=== PATIENT | female | born 1990 | race African-American/Black ===

== ENCOUNTER 2021-04-11 15:25 | Inpatient (IN) | payer OTHER ==
[2021-04-11] MEDS ORDERED: hydrALAZINE 20 MG/ML VIAL SLOW IVP PRN ×2 (16:07→22:47)
[2021-04-11] MEDS ORDERED: Docusate 100 MG CAP PO PRN (16:56)
[2021-04-11] MEDS ORDERED: Promethazine HCl 25 MG/ML VIAL IM PRN ×2 (16:56→18:59)
[2021-04-11] MEDS ORDERED: Ondansetron PF 4 MG/2 ML Vial IVP PRN ×3 (16:56→22:47)
[2021-04-11] MEDS ORDERED: Famotidine/PF 20 mg/2ml Vial SLOW IVP PRN (16:56)
[2021-04-11] MEDS ORDERED: Acetaminophen 500 MG TAB PO PRN (16:56)
[2021-04-11] MEDS ORDERED: Bicitra 30 ML UDCUP PO PRN (16:56)
[2021-04-11] MEDS ORDERED: ceFAZolin 2 GM/Dextrose 50 ML 2 GM in Premix Bag 1 BAG IVPB SCH (17:00)
[2021-04-11] MEDS ORDERED: Lactated Ringer's 1,000 ML IV SCH (17:00)
[2021-04-11] MEDS ORDERED: Carboprost 250 MCG/ML AMP IM PRN (17:03)
[2021-04-11] MEDS ORDERED: Methylergonovine 0.2 MG/ML VIAL IM PRN (17:03)
[2021-04-11 17:14] LABS: Mean Corpuscular HGB CONC 32.5 g/dL (32.0-36.0); Mean Corpuscular Hemoglobin 28.1 pg (27.0-33.0); Mean Corpuscular Volume 86.5 fl (81.6-98.3); Mean Platelet Volume 12.1 fl (7.4-10.4); Platelet Count 191 10x3/uL (150-450); RBC Distribution Width 13.5 % (11.5-14.5); Red Blood Cell (RBC) Count 3.56 10x6/uL (3.90-5.03); White Blood Cell (WBC) Count 14.4 10x3/uL (3.5-10.5)
[2021-04-11] MEDS ORDERED: NS w/ Oxytocin 30 units 500 ML IV SCH (17:15)
[2021-04-11] MEDS ORDERED: ceFAZolin 2 GM/Dextrose 50 ML IVPB ONE (17:17)
[2021-04-11 17:27] VITALS: BMI 27.4
[2021-04-11] MEDS ORDERED: Morphine PF 10 MG/10 ML VIAL ONE (17:33)
[2021-04-11] MEDS ORDERED: Dexamethasone 4 mg/ml Vial ONE (17:33)
[2021-04-11] MEDS ORDERED: Ondansetron PF 4 MG/2 ML Vial ONE (17:33)
[2021-04-11] MEDS ORDERED: Bupivacaine 0.75% W/DEXTROSE 8.25% 2 ML AMP ONE (17:33)
[2021-04-11] MEDS ORDERED: ePHEDrine Sulfate 50 MG/10 ML VIAL ONE (17:33)
[2021-04-11] MEDS ORDERED: Lidocaine 1% PF 5 ML VIAL ONE (17:33)
[2021-04-11] MEDS ORDERED: Fentanyl 100 MCG/2 ML VIAL ONE (17:33)
[2021-04-11] MEDS ORDERED: Oxytocin 10 UNITS/ML VIAL ONE (17:33)
[2021-04-11] MEDS ORDERED: Phenylephrine 40 MG/NS 250 ML 250 ML ONE (17:33)
[2021-04-11] MEDS ORDERED: PHENYLEPHRINE-NS 100 MCG/ML 10 ML SYRINGE ONE (17:33)
[2021-04-11] MEDS ORDERED: Ketorolac Tromethamine 30 MG/ML VIAL ONE (17:34)
[2021-04-11 17:40] LABS: Hep B Surf Ag Non-Reactive S/CO (NonReactive)
[2021-04-11 17:42] LABS: Syphilis Antibody Nonreactive (Nonreactive); Syphilis Antibody Index 0.03 S/CO (<1.00 Non-Reactive)
[2021-04-11 17:43] LABS: HBSAg Index 0.19 S/CO (0-0.99)
[2021-04-11 17:54] LABS: Amphetamine Not Detected (NotDetected); Barbiturates Screen Not Detected (NotDetected); Benzodiazepine Screen Not Detected (NotDetected); Cocaine Metabolite Screen Not Detected (NotDetected); Methadone Not Detected (NotDetected); Methamphetamine Not Detected (NotDetected); Opiate Screen Not Detected (NotDetected); Oxycodone Screen Not Detected (NotDetected); Phencyclidine (PCP) Not Detected (NotDetected); THC/Cannabinoid Screen Not Detected (NotDetected); Tricyclic Screen Not Detected (NotDetected)
[2021-04-11] MEDS ORDERED: Hydrocerin (Eucerin) Cream 120 gm Jar TOP PRN (18:59)
[2021-04-11] MEDS ORDERED: Naloxone HCl 0.4 mg/ml Vial IV PRN (18:59)
[2021-04-11] MEDS ORDERED: Promethazine HCl 25 MG SUPP PR PRN (18:59)
[2021-04-11] MEDS ORDERED: Naloxone HCl 0.4 mg/ml Vial IVP PRN ×2 (18:59)
[2021-04-11] MEDS ORDERED: Communication Order-Pharmacy FS SCH (19:00)
[2021-04-11 19:14] LABS: SARS-CoV-2 NAA Rapid Test Not Detected (NotDetected)
[2021-04-11] MEDS: diphenhydrAMINE 50 MG/ML VIAL IVP PRN (19:33)
[2021-04-11 19:52] LABS: HIV (1/2) Antibody/Antigen Non-Reactive (NonReactive); HIV 1/2 INDEX 0.07 S/CO (<1.00)
[2021-04-11] MEDS ORDERED: Morphine 4 MG/ML VIAL SLOW IVP PRN (20:45)
[2021-04-11] MEDS ORDERED: Varicella virus, LIVE 0.5 ML VIAL SC ONE (22:47)
[2021-04-11] MEDS ORDERED: Boostrix 0.5 ML (Tdap) VIAL IM ONE (22:47)
[2021-04-11] MEDS ORDERED: Measles/Mumps/Rubella 10 MCG/0.5 ML VIAL SC ONE (22:47)
[2021-04-11] MEDS ORDERED: Bisacodyl 10 MG SUPP PR PRN (22:47)
[2021-04-11] MEDS ORDERED: Acetaminophen 325 MG TAB PO PRN (22:47)
[2021-04-11] MEDS ORDERED: diphenhydrAMINE 25 MG CAP PO PRN (22:47)
[2021-04-11] MEDS ORDERED: Lanolin Ointment 7 GM TUBE TOP PRN (22:47)
[2021-04-11] MEDS ORDERED: Docusate 100 MG CAP PO SCH (23:00)
[2021-04-11] MEDS ORDERED: Ferrous Sulfate 325 MG TAB PO SCH (23:00)
[2021-04-11] MEDS ORDERED: valACYclovir 500 MG TAB PO SCH (23:00)
[2021-04-12] MEDS: Ketorolac Tromethamine 30 MG/ML VIAL IVP PRN ×2 (00:55→06:37)
[2021-04-12] MEDS: diphenhydrAMINE 50 MG/ML VIAL IVP PRN (00:55)
[2021-04-12 03:41] LABS: RapidComm Collect By CP.AOR; pH (Cord, venous) 7.332 (7.250-7.350)
[2021-04-12 03:42] LABS: RapidComm Collect By CP.AOR
[2021-04-12 03:44] LABS: Actual Bicarbonate (HCO3a) 22.2 mEq/L (22-28); Base Excess (BEa) -2.4 mEq/L (-2.0 to +3.0); CO2 Tension 38.2 mmHg (35.0-45.0); O2 Tension (PaO2), arterial 137.7 mmHg (80.0-100.0); pH, Arterial 7.38 (7.35-7.45)
[2021-04-12 03:46] LABS: Carboxyhemoglobin (COHb) 4.1 gm% (0.0-3.0)
[2021-04-12 03:47] LABS: Calcium, Ionized (arterial) 1.22 mmol/L (1.12-1.30)
[2021-04-12 03:48] LABS: Puncture Site RRA
[2021-04-12] MEDS ORDERED: Lactated Ringer's 1,000 ML IV SCH (07:30)
[2021-04-12 07:59] LABS: Hemoglobin 8.1 g/dL (12.0-15.5)
[2021-04-12] MEDS ORDERED: valACYclovir 500 MG TAB PO SCH (09:00)
[2021-04-12] MEDS: Ferrous Sulfate 325 MG TAB PO SCH ×2 (09:09→20:41)
[2021-04-12] MEDS: Prenatal Vitamin 1 TAB PO SCH (09:09)
[2021-04-12] MEDS: Docusate 100 MG CAP PO SCH ×2 (09:10→20:42)
[2021-04-12] MEDS: valACYclovir 500 MG TAB PO SCH ×2 (09:10→20:41)
[2021-04-12] MEDS: Simethicone Chewable 80 MG TAB PO PRN (12:59)
[2021-04-12] MEDS: HYDROcodone/Acetaminophen 5/325 mg Tablet PO PRN ×2 (12:59→23:29)
[2021-04-12] MEDS: Ibuprofen 800 MG TAB PO SCH ×2 (13:02→20:42)
[2021-04-12] MEDS ORDERED: Ibuprofen 800 MG TAB PO SCH (22:00)
[2021-04-13] MEDS: Ibuprofen 800 MG TAB PO SCH ×3 (06:07→21:06)
[2021-04-13] MEDS: Docusate 100 MG CAP PO SCH ×2 (09:25→21:05)
[2021-04-13] MEDS: Prenatal Vitamin 1 TAB PO SCH (09:25)
[2021-04-13] MEDS: Simethicone Chewable 80 MG TAB PO PRN (09:25)
[2021-04-13] MEDS: Ferrous Sulfate 325 MG TAB PO SCH ×2 (09:25→21:06)
[2021-04-13] MEDS: valACYclovir 500 MG TAB PO SCH ×2 (09:26→21:06)
[2021-04-13] MEDS: HYDROcodone/Acetaminophen 5/325 mg Tablet PO PRN ×2 (14:20→21:12)
[2021-04-14] MEDS: HYDROcodone/Acetaminophen 5/325 mg Tablet PO PRN ×2 (00:43→09:31)
[2021-04-14] MEDS: Ibuprofen 800 MG TAB PO SCH (05:21)
[2021-04-14 07:45] VITALS: BP 110/55; TEMP 97.7
[2021-04-14] MEDS: Ferrous Sulfate 325 MG TAB PO SCH (09:30)
[2021-04-14] MEDS: Docusate 100 MG CAP PO SCH (09:30)
[2021-04-14] MEDS: Prenatal Vitamin 1 TAB PO SCH (09:31)
[2021-04-14] MEDS: valACYclovir 500 MG TAB PO SCH (09:32)
[2021-04-21] MEDS ORDERED: valACYclovir 500 MG TAB PO SCH (21:00)
[2021-04-22] MEDS ORDERED: valACYclovir 500 MG TAB PO SCH (09:00)
== END 2021-04-14 14:10 | disposition home or self-care (01) | DRG 787 ==
LOC: CSHLD/OP 15:25 → CSHLD 17:16 → CSHPP 22:24
PROVIDERS: ADMIT Emergency Medicine; ATTEND Emergency Medicine
PROC: 10D00Z1 Extraction of Products of Conception, Low, Open Approach (ICD-10-PCS; principal; 2021-04-11)
DX: O60.14X0 Preterm labor third trimester with preterm delivery third trimester, not applicable or unspecified (principal); O98.32 Other infections with a predominantly sexual mode of transmission complicating childbirth; D62 Acute posthemorrhagic anemia; Z3A.35 35 weeks gestation of pregnancy; Z37.0 Single live birth; Z20.822 Contact with and (suspected) exposure to COVID-19; O36.8130 Decreased fetal movements, third trimester, not applicable or unspecified; O99.334 Smoking (tobacco) complicating childbirth; F17.210 Nicotine dependence, cigarettes, uncomplicated; O99.02 Anemia complicating childbirth; D50.9 Iron deficiency anemia, unspecified; Z79.899 Other long term (current) drug therapy; A60.09 Herpesviral infection of other urogenital tract; O34.13 Maternal care for benign tumor of corpus uteri, third trimester; D25.9 Leiomyoma of uterus, unspecified; D56.3 Thalassemia minor; O99.345 Other mental disorders complicating the puerperium; F53.0 Postpartum depression
CPT/HCPCS: 36415; 36600; 51702; 80306; 82805; 85014; 85018; 85027; 86780; 86850; 86900; 86901; 87340; 87389; 99285; J0690; J1100; J1200; J1885; J2270; J2274; J2405; J2590; J3010; J3490; J7120; U0002

== ENCOUNTER 2021-05-31 15:47 | Emergency (ER) | payer OTHER ==
[2021-05-31] MEDS ORDERED: Dexamethasone 10 MG/ML VIAL ONE (17:56)
== END 2021-05-31 17:08 | disposition home or self-care (01) ==
LOC: CSHERS 15:47
DX: L02.01 Cutaneous abscess of face (principal); F17.210 Nicotine dependence, cigarettes, uncomplicated
CPT/HCPCS: 96365; 96375; J1100; J3490

== ENCOUNTER 2022-03-10 18:31 | Emergency (ER) | payer OTHER ==
[2022-03-10 19:02] LABS: Bilirubin Neg (Negative); Blood, Urine 50 (Negative); Clarity Slightly Cloudy (Clear); Glucose, Urine (Dipstick) Normal (Negative); Ketone, Urine Negative (Negative); Leukocyte 100 (Negative); Nitrite Negative (Negative); Protein, Urine (Dipstick) Negative (Neg-Trace); Specific Gravity, Urine 1.015 (1.005-1.030); Urobilinogen Normal mg/dL (Less than 2)
[2022-03-10 19:04] LABS: Pregnancy Test - Urine (BHCG) POSITIVE (Negative); Pregu Control Background? CLEAR/WHITE (CLR/WHITE); Pregu Control Bar Appear? YES (CONTROL BAR); Specific Gravity 1.015 (1.002-1.036)
[2022-03-10 19:34] LABS: Bacteria/HPF Rare-Few HPF (None Seen); RBC/HPF 0-3 HPF (0-3); WBC/HPF 0-3 HPF (0-3)
[2022-03-10] MEDS ORDERED: Metoclopramide HCl 10 MG TAB ONE (20:00)
[2022-03-10] MEDS ORDERED: Acetaminophen 325 MG TAB ONE (20:00)
[2022-03-12 17:32] LABS: Chlamydia by PCR *Indeterminate (NotDetected)
[2022-03-12 17:33] LABS: GC by PCR *Indeterminate (NotDetected)
== END 2022-03-10 21:18 | disposition home or self-care (01) ==
LOC: CSHERS 18:31
DX: O26.91 Pregnancy related conditions, unspecified, first trimester (principal); F17.210 Nicotine dependence, cigarettes, uncomplicated; Z3A.11 11 weeks gestation of pregnancy
CPT/HCPCS: 81003; 81015; 81025; 84702; 86900; 86901; 87086; 87480; 87491; 87510; 87591; 87660; 99284

== ENCOUNTER 2022-09-13 20:13 | Inpatient (IN) | payer OTHER ==
[2022-09-13 20:52] VITALS: BMI 27.9
[2022-09-13] MEDS ORDERED: hydrALAZINE 20 MG/ML VIAL SLOW IVP PRN (21:01)
[2022-09-13 21:56] LABS: Bilirubin Neg (Negative); Blood, Urine 150 (Negative); Clarity Clear (Clear); Glucose, Urine (Dipstick) Normal (Negative); Ketone, Urine 5 mg/dL (Negative); Leukocyte 100 (Negative); Nitrite Negative (Negative); Protein, Urine (Dipstick) 15 mg/dl (Neg-Trace)
[2022-09-13 22:17] LABS: CAUTI Indications for Culture Pregnancy
[2022-09-13 22:18] LABS: Bacteria/HPF 1+ HPF (None Seen); RBC/HPF 0-3 HPF (0-3)
[2022-09-13 22:19] LABS: Urine Culture Reflex Yes Yes
[2022-09-13] MEDS ORDERED: Promethazine HCl 25 MG/ML VIAL IM PRN ×2 (22:23→22:45)
[2022-09-13] MEDS ORDERED: Bicitra 30 ML UDCUP PO PRN (22:23)
[2022-09-13] MEDS ORDERED: Methylergonovine 0.2 MG/ML VIAL IM PRN (22:23)
[2022-09-13] MEDS ORDERED: Famotidine/PF 20 mg/2ml Vial SLOW IVP PRN (22:23)
[2022-09-13] MEDS ORDERED: Carboprost 250 MCG/ML AMP IM PRN (22:23)
[2022-09-13] MEDS ORDERED: Diphenoxylate HCl/Atropine Tablet PO PRN (22:23)
[2022-09-13] MEDS ORDERED: Acetaminophen 500 MG TAB PO PRN (22:23)
[2022-09-13] MEDS ORDERED: Misoprostol 200 MCG TAB PR PRN (22:23)
[2022-09-13] MEDS ORDERED: Ondansetron PF 4 MG/2 ML Vial IVP PRN ×2 (22:23→22:45)
[2022-09-13] MEDS ORDERED: Tranexamic Acid 1,000 MG/10 ML VIAL IVP PRN (22:23)
[2022-09-13] MEDS ORDERED: Lactated Ringer's 1,000 ML IV SCH (22:30)
[2022-09-13] MEDS ORDERED: NS w/ Oxytocin 30 units 500 ML IV SCH (22:30)
[2022-09-13] MEDS ORDERED: CEFAZOLIN 2 GM in Sodium Chloride 0.9% 100 ML IVPB SCH (22:30)
[2022-09-13] MEDS ORDERED: Naloxone HCl 0.4 mg/ml Vial IVP PRN ×2 (22:45)
[2022-09-13] MEDS ORDERED: Ondansetron HCl/PF 4 MG/2 ML Vial IVP PRN (22:45)
[2022-09-13] MEDS ORDERED: Fentanyl 100 MCG/2 ML VIAL SLOW IVP PRN (22:45)
[2022-09-13] MEDS ORDERED: Meperidine HCl/PF 25 MG/ML VIAL SLOW IVP PRN (22:45)
[2022-09-13] MEDS ORDERED: Moisturizing Cream (Eucerin) 113 GM JAR TOP PRN (22:45)
[2022-09-13] MEDS ORDERED: Promethazine HCl 25 MG SUPP PR PRN (22:45)
[2022-09-13] MEDS ORDERED: Naloxone HCl 0.4 mg/ml Vial IV PRN (22:45)
[2022-09-13] MEDS ORDERED: diphenhydrAMINE 50 MG/ML VIAL IVP PRN (22:45)
[2022-09-13] MEDS ORDERED: Ketorolac Tromethamine 30 MG/ML VIAL IVP SCH (22:45)
[2022-09-13] MEDS ORDERED: L&D-Morphine 4 MG/ML VIAL SLOW IVP PRN (22:45)
[2022-09-13] MEDS ORDERED: Communication Order-Pharmacy FS SCH (22:45)
[2022-09-13] MEDS ORDERED: Morphine PF 10 MG/10 ML VIAL ONE (22:50)
[2022-09-13] MEDS ORDERED: Dexamethasone 4 mg/ml Vial ONE (22:51)
[2022-09-13] MEDS ORDERED: PHENYLEPHRINE-NS 100 MCG/ML 10 ML SYRINGE ONE (22:51)
[2022-09-13] MEDS ORDERED: Ondansetron PF 4 MG/2 ML Vial ONE (22:51)
[2022-09-13] MEDS ORDERED: Oxytocin 10 UNITS/ML VIAL ONE (22:51)
[2022-09-13 23:20] LABS: Hematocrit 33.9 % (34.9-44.5); Hemoglobin 10.7 g/dL (12.0-15.5); Mean Corpuscular HGB CONC 31.6 g/dL (32.0-36.0); Mean Corpuscular Hemoglobin 27.2 pg (27.0-33.0); Mean Platelet Volume 12.7 fl (7.4-10.4); Platelet Count 201 10x3/uL (150-450); Red Blood Cell (RBC) Count 3.94 10x6/uL (3.90-5.03); White Blood Cell (WBC) Count 8.2 10x3/uL (3.5-10.5)
[2022-09-13 23:51] LABS: HBSAg Index 0.18 S/CO (0-0.99); Hep B Surf Ag - L&D Non-Reactive S/CO (NonReactive); Syphilis Antibody Nonreactive (Nonreactive); Syphilis Antibody Index 0.03 S/CO (<1.00 Non-Reactive)
[2022-09-14] MEDS ORDERED: Oxytocin 10 UNITS/ML VIAL ONE (00:20)
[2022-09-14] MEDS ORDERED: hydrALAZINE 20 MG/ML VIAL SLOW IVP PRN (00:38)
[2022-09-14] MEDS ORDERED: Boostrix 0.5 ML (Tdap) VIAL (>/=7 yrs of age) IM ONE (00:38)
[2022-09-14] MEDS ORDERED: Ketorolac Tromethamine 30 MG/ML VIAL ONE (00:49)
[2022-09-14 01:20] LABS: Glucose 77 mg/dL (70-105)
[2022-09-14 01:26] LABS: Amphetamine Not Detected (NotDetected); Barbiturates Screen Not Detected (NotDetected); Benzodiazepine Screen Not Detected (NotDetected); Cocaine Metabolite Screen Not Detected (NotDetected); Methadone Not Detected (NotDetected); Oxycodone Screen Not Detected (NotDetected); Phencyclidine (PCP) Not Detected (NotDetected); THC/Cannabinoid Screen Not Detected (NotDetected); Tricyclic Screen Not Detected (NotDetected)
[2022-09-14 01:42] LABS: Methamphetamine Not Detected (NotDetected); Opiate Screen Not Detected (NotDetected)
[2022-09-14] MEDS: Simethicone Chewable 80 MG TAB PO PRN ×4 (07:21→20:31)
[2022-09-14] MEDS: Ketorolac Tromethamine 30 MG/ML VIAL IVP PRN ×2 (07:21→22:27)
[2022-09-14] MEDS: Docusate 100 MG CAP PO SCH ×2 (07:22→20:31)
[2022-09-14] MEDS: Ferrous Sulfate 325 MG TAB PO SCH (07:22)
[2022-09-14] MEDS: Acyclovir 400 mg Tablet PO SCH ×3 (08:52→23:09)
[2022-09-14] MEDS: HYDROcodone/Acetaminophen 5/325 mg Tablet PO PRN ×3 (11:49→20:31)
[2022-09-15] MEDS: HYDROcodone/Acetaminophen 5/325 mg Tablet PO PRN ×4 (01:21→16:17)
[2022-09-15 04:08] LABS: Hematocrit 24.1 % (34.9-44.5); Hemoglobin 7.9 g/dL (12.0-15.5); Mean Corpuscular HGB CONC 32.8 g/dL (32.0-36.0); Mean Corpuscular Hemoglobin 27.8 pg (27.0-33.0); Mean Corpuscular Volume 84.9 fl (81.6-98.3); Mean Platelet Volume 11.8 fl (7.4-10.4); Platelet Count 113 10x3/uL (150-450); RBC Distribution Width 15.6 % (11.5-14.5); Red Blood Cell (RBC) Count 2.84 10x6/uL (3.90-5.03); White Blood Cell (WBC) Count 8.4 10x3/uL (3.5-10.5)
[2022-09-15] MEDS: Ibuprofen 800 MG TAB PO SCH ×2 (05:44→14:02)
[2022-09-15] MEDS: Acyclovir 400 mg Tablet PO SCH ×2 (08:08→16:17)
[2022-09-15] MEDS: Ferrous Sulfate 325 MG TAB PO SCH (08:08)
[2022-09-15] MEDS: Simethicone Chewable 80 MG TAB PO PRN (08:08)
[2022-09-15] MEDS: Docusate 100 MG CAP PO SCH (08:08)
[2022-09-15] MEDS ORDERED: metroNIDAZOLE 500 MG TAB PO SCH (09:00)
[2022-09-15 15:49] LABS: #Monocytes 0.5 10x3/uL (0.0-1.1); %Basophils 0.1 % (0.0-2.0); %Eosinophils 0.3 % (0.0-6.0); %Lymphocytes 16.8 % (18.0-47.0); %Monocytes 7.4 % (0.0-10.0); %Neutrophils 74.5 % (40.0-75.0); Hematocrit 27.2 % (34.9-44.5); Hemoglobin 8.8 g/dL (12.0-15.5); Mean Corpuscular HGB CONC 32.4 g/dL (32.0-36.0); Mean Corpuscular Hemoglobin 27.6 pg (27.0-33.0); Mean Corpuscular Volume 85.3 fl (81.6-98.3); Mean Platelet Volume 12.2 fl (7.4-10.4); Platelet Count 119 10x3/uL (150-450); Red Blood Cell (RBC) Count 3.19 10x6/uL (3.90-5.03); White Blood Cell (WBC) Count 6.8 10x3/uL (3.5-10.5)
[2022-09-15 18:07] VITALS: BP 126/61; TEMP 98.5
== END 2022-09-15 20:00 | disposition home or self-care (01) | DRG 787 ==
LOC: CSHLD/OP 20:13 → CSHLD 22:28 → CSHPP 09-14 03:30
PROVIDERS: ADMIT Family Medicine; ATTEND Family Medicine
PROC: 10D00Z1 Extraction of Products of Conception, Low, Open Approach (ICD-10-PCS; principal; 2022-09-13)
PROC: 3E033VJ Introduction of Other Hormone into Peripheral Vein, Percutaneous Approach (ICD-10-PCS; 2022-09-13)
DX: O36.5930 Maternal care for other known or suspected poor fetal growth, third trimester, not applicable or unspecified (principal); D62 Acute posthemorrhagic anemia; O98.32 Other infections with a predominantly sexual mode of transmission complicating childbirth; O23.593 Infection of other part of genital tract in pregnancy, third trimester; O99.02 Anemia complicating childbirth; O99.344 Other mental disorders complicating childbirth; O34.211 Maternal care for low transverse scar from previous cesarean delivery; B96.89 Other specified bacterial agents as the cause of diseases classified elsewhere; Z3A.37 37 weeks gestation of pregnancy; Z37.0 Single live birth; F32.A Depression, unspecified; O76 Abnormality in fetal heart rate and rhythm complicating labor and delivery; A60.09 Herpesviral infection of other urogenital tract
CPT/HCPCS: 36415; 51702; 80306; 81001; 82947; 85027; 86780; 86850; 86900; 86901; 87086; 87340; 87480; 87510; 87660; 88307; 99285; J1100; J1885; J2274; J2405; J2590; J3490; S0028